=== PATIENT | male | born 1990 | race Hispanic/Latino ===

== ENCOUNTER 2016-12-07 22:38 | Emergency (ER) | payer SELFPAY ==
[~2016-12-07] VITALS: Ht 177.8 cm; Wt 77.3 kg
[2016-12-07 23:01] VITALS: BP 109/60; PULSE 93; RESP 16; O2SAT 94
[2016-12-07] MEDS ORDERED: 0.9% Sodium Chloride 1,000 ML IV ONE (23:07)
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
[2016-12-07 23:18] VITALS: BP 110/60; PULSE 85; RESP 13; O2SAT 95
[2016-12-07 23:34] LABS: BASOPHILS % (AUTO) 0.3 % (0-3); EOSINOPHILS % (AUTO) 1.8 % (0-5); MONOCYTES % (AUTO) 6.7 % (4-12); Mean Corpuscular Hemoglobin 28.6 pg (27.0-35.0); Mean Corpuscular Volume 84.9 fL (81-100); Platelet Count 239 bil/L (150-400)
[2016-12-07 23:57] VITALS: BP 114/59; PULSE 72; RESP 16; O2SAT 97
[2016-12-08] MEDS ORDERED: KCl 40 mEq/D5W 500 mL 40 MEQ in IV Premix 1 EACH IV ONE (00:05)
[2016-12-08 00:54] VITALS: BP 113/64; PULSE 75; RESP 18; O2SAT 98
[2016-12-08] MEDS ORDERED: Ondansetron 2 mg/mL 2 mL Inj ONE (01:01)
[2016-12-08] MEDS ORDERED: Ondansetron 2 mg/mL 2 mL Inj IVPUSH ONE (01:05)
[2016-12-08 01:34] VITALS: PULSE 66; RESP 18; O2SAT 96
[2016-12-08 02:55] VITALS: BP 113/55; PULSE 62; RESP 16; O2SAT 98
[2016-12-08] MEDS ORDERED: Haloperidol 5 mg/mL Inj IVPUSH ONE (04:05)
[2016-12-08 06:14] VITALS: BP 117/41; PULSE 89; RESP 20; O2SAT 94
--- NOTE | 2016-12-08 07:35 | DRSVH ---
PROCEDURE: CT BRAIN WITHOUT CONTRAST ([id number]) INDICATIONS: 26 year-old male with altered mental status. TECHNIQUE: Noncontrast 4.5 mm thick angled axial sections acquired from the foramen magnum to the vertex, with c oronal reformats. COMPARISON: None. FINDINGS: Preliminary interpretation rendered by [facility]. Image quality: Excellent. CSF spaces: Basal cisterns are patent. No extra-axial fluid collections. Ventricles are normal in size and shape. Brain: No midline shift. No intracranial masses or hemorrhage. Pinon-white matter interface is norm al. Skull and face: Calvarium and visualized facial bones are intact, without suspicious lesions. Sinuses: There is moderate bilateral maxillary sinus mucosal thickening. Other sinuses and mastoids a re clear. IMPRESSION: 1. No acute intracranial abnormalities. 2. Moderate bilateral maxillary sinus mucosal thickening would suggest sinusitis. No significant discrepancy with preliminary [facility] report. Dictated by: Kelechi Francisco M.D. on 12/08/2016 at 6:19 Approved by: Kelechi Frnacisco M.D. on 12/08/2016 at 7:33
[2016-12-08 08:59] VITALS: BP 113/44; PULSE 89; RESP 19; O2SAT 99
== END 2016-12-08 09:03 | disposition home or self-care (01) ==
LOC: SED 22:38 → EDUNIT# 22:38 → EDBD 22:38 → SED 12-08 09:03
DX: F43.0 Acute stress reaction (principal); F10.120 Alcohol abuse with intoxication, uncomplicated; Y90.7 Blood alcohol level of 200-239 mg/100 ml
CPT/HCPCS: 36415; 70450; 80053; 81002; 82075; 85025; 96361; 96374; 96375; 99285; G0480; J1200; J1630; J2060; J2405; J3480; J7030

== ENCOUNTER 2017-05-27 18:00 | Emergency (ER) | payer OTHER ==
[~2017-05-27] VITALS: Ht 170.2 cm; Wt 81.8 kg
[2017-05-27 19:05] VITALS: BP 100/65; PULSE 47; RESP 16; O2SAT 100
--- NOTE | 2017-05-27 20:26 | ED.REPORT ---
HPI-Extremity Problem Upper Date of Service May 27, 2017 ED Provider: Doc,Ed MD History of Present Illness: 27-year-old male here for right digit laceration. Cut his finger on metal about 4:00 this afternoon. Every time he bends his fingert it bleeds. Tetanus not up-to-date Nursing Notes Stated Complaint: FINGER LACERATION/WORK RELATED Chief Complaint: Extremity Trauma Allergies: Coded Allergies: No Known Allergies (Unverified , 12/08/16) General Time Seen by MD: 20:20 Chief Complaint Finger injury right 5 Hx Obtained From: Patient Arrived By: Walk-in Onset Occurred: 5 - 8 hours ago Symptom Duration: Since onset Caused by: Accidental Context: Occurred at: Workplace Location: : Finger right 5 Severity: Current: Moderate Severity: Maximum: Moderate Pertinent Negative: Pt denies other symptoms Exacerbated by: Range of motion Recent Healthcare: No recent doctor visit Similar Sx Previous: No Past Medical History Past Medical History Notes: Past medical history is unknown. Patient has [place] ID Review of Systems Constitutional: Denies: Fever Musculoskeletal: Reports: Extremity pain Physical Exam Initial Vital Signs Vital Signs (First) Date Time Temp Pulse Resp B/P Pulse Ox O2 Delivery O2 Flow Rate FiO2 05/27/17 19:05 36.8 47 16 100/65 100 Room Air Initial VS: Reviewed, Vital signs normal General/Constitutional: Well-developed, Well-nourished Head / Eyes: Atraumatic, Normocephalic, PERRL Respiratory: Breath sounds normal, Clear to auscultation, No respiratory distress Cardiovascular: Regular rate & rhythm, Heart sounds normal, Intact distal pulses Joint above & below: affected area is NL. Right fifth digit with 1 cm lack over the PIP joint. Patient has full range of motion actively against force. Edges of the wound approximated nicely Interpretation & Diagnostics Interpretation & Diagnostics: PROCEDURE: X-RAY FINGERS, TWO VIEWS INDICATIONS: lac, 5th digit TECHNIQUE: AP hand, 2 views of the right fifth finger(s) acquired. COMPARISON: None. FINDINGS: Bones: No fractures or dislocations. No suspicious bony lesions. Soft tissues: No suspicious soft tissue calcifications. IMPRESSION: No bony abnormality is seen and no radiopaque foreign body is seen. Procedures Procedure Notes: Wound cleansed with Hibiclens scrub. No bleeding wound is minimally deep. Laceration Management Laceration Management: Steri-Strips applied to close wound. Wound is not bleeding Procedure Performed by: Allied health pract Consent / Setup / Site Prep: Informed consent provided Wound Length: 1 cm Digital Block: No Post-Procedure / Complications: Dressing applied Discharge & Departure Shift Change Sign-Out Imaging Studies: Imaging discussed Response to Therapy: Improved Impression: Primary Impression: Laceration of finger Encounter type: initial encounter Qualified Code: S61.219A - Laceration without foreign body of unspecified finger without damage to nail, initial encounter Disposition: Home Discharge Condition All VS Reviewed: Yes Condition: Stable Patient Instructions: Acute Wound Care (ED) Additional Instructions: Wear splint 7 days or until wound is completely healed. you may work but light duty with your right hand. Follow-up with your PCP or at the urgent care for follow-up with his L&I injury. Watch for signs of infection including redness, purulent drainage, increasing pain or swelling and return to ER if this happens. Take ibuprofen 600 mg 3 times a day for pain. You may add Tylenol 1 g every 8 hours as needed for pain as well Referrals: NOPCP (PCP) [facility] EDSupervising Provider for APC: Kel Koroma Linnea K ARNP May 27, 2017 20:26
[2017-05-27] MEDS ORDERED: TdaP Vaccine 0.5 mL Inj IM ONE (21:00)
--- NOTE | 2017-05-27 21:01 | DRSVH ---
PROCEDURE: X-RAY FINGERS, TWO VIEWS INDICATIONS: lac, 5th digit TECHNIQUE: AP hand, 2 views of the right fifth finger(s) acquired. COMPARISON: None. FINDINGS: Bones: No fractures or dislocations. No suspicious bony lesions. Soft tissues: No suspicious soft tissue calcifications. IMPRESSION: No bony abnormality is seen and no radiopaque foreign body is seen. Dictated by: Burton Panda M.D. on 05/27/2017 at 20:58 Approved by: Burton Panda M.D. on 05/27/2017 at 20:58
[2017-05-27 21:53] VITALS: BP 108/62; PULSE 58; RESP 14; O2SAT 100
== END 2017-05-27 21:55 | disposition home or self-care (01) ==
LOC: SED 18:00
DX: S61.217A Laceration without foreign body of left little finger without damage to nail, initial encounter (principal); W26.8XXA Contact with other sharp object(s), not elsewhere classified, initial encounter; Y93.89 Activity, other specified; Y92.69 Other specified industrial and construction area as the place of occurrence of the external cause; Y99.0 Civilian activity done for income or pay; Z23 Encounter for immunization